=== PATIENT | male | born 1950 | race Caucasian/White ===

== ENCOUNTER 2017-01-27 09:03 | Emergency (ER) | payer OTHER ==
[~2017-01-27] VITALS: Ht 170.2 cm; Wt 77.4 kg
[2017-01-27 09:13] VITALS: TEMP 36.6; O2SAT 97; Ht 170.2 cm; Wt 77.4 kg
[2017-01-27] MEDS ORDERED: SODIUM CHLORIDE 0.9% 500ML 500 ML IV STA (09:20)
[2017-01-27] MEDS ORDERED: SODIUM CHLORIDE 0.9% 1000ML 1,000 ML IV STA (09:20)
--- NOTE | 2017-01-27 09:36 | EMERGENCY ROOM VISIT NOTE ---
History Report prepared by Yayo: Akash Parker Under the Supervision of: Dr. Jael Ervin M.D. First contact with patient: 09:08 Chief Complaint: SYNCOPE Stated Complaint: SYNCOPE Nursing Triage Summary: Patient had a witnessed 4-5 second period of sycnope associated with diaphoresis and paleness. Negative nausea/vomiting, chest pain, SOB, or recent illness. No complaints on arrival. History of Present Illness The patient is a 67 year old male who presents to the Emergency Room with complaints of an episode of syncope this morning. The patient states that he began feeling "tingly all over" this morning as he was sitting down in a recliner. He notes that as he got up from the chair, he was able to walk about 20 feet before having to brace himself for support. He reports that the next thing he remembers was his brother helping him stand up from the ground. The patient states that his brother said he was out for 4-5 seconds. He notes that he was "drenched in sweat" following the episode but did not hit his head as he fell. The patient states that he is from [place], but is currently visiting his brother. He notes that he drove here 5 days ago. He reports that he was diagnosed with an upper respiratory virus 3 weeks ago. He denies any SOB and leg pain. The patient states that he was not drinking last night and does not smoke marijuana or cigarettes. He notes that he has no history of heart attack, or diabetes mellitus, but notes that he has a history of hypertension and hyperlipidemia. He reports that he did not hear his heart flutter following the episode today. The patient states that he did not eat or drink anything this morning. Source of History: patient Onset: today Position: head Quality: tingling, other (syncope) Timing: other (an episode) Associated Symptoms: + diaphoresis, No headache, No SOB Note: he denies any leg pain Review of Systems See HPI for pertinent positives & negatives. A total of 10 systems reviewed and were otherwise negative. Past Medical & Surgical Medical Problems: (1) Hyperlipemia (2) Hypertension Family History No pertinent family history stated. Social History Smoking Status: Never Smoker Alcohol Use: none Drug Use: none Marital Status: Housing Status: lives with family Current/Historical Medications Scheduled Aspirin (Aspirin Ec), 81 MG PO HS Atorvastatin (Lipitor), 20 MG PO HS Bioflavonoid Products (Vitamin C), 1 EA PO DAILY Citalopram Hydrobromide (Celexa), 10 MG PO DAILY Fish Oil (Palermo-3), 1 CAP PO DAILY Glucosamine Sulfate (Glucosamine), 1,000 MG PO DAILY Hctz/Losartan (Hyzaar 25MG/100MG), 1 TAB PO QDD Ocuvite Preservision (Ocuvite Preservision), 1 TAB PO DAILY Scheduled PRN Guaifenesin-Codeine (Codeine/Guaifenesin 100-10 mg/5Ml), 5 ML PO Q4H PRN for Cough Allergies Coded Allergies: No Known Allergies (Unverified , 01/27/17) Physical Exam Vital Signs Date Time Temp Pulse Resp B/P (MAP) Pulse Ox O2 Delivery O2 Flow Rate FiO2 01/27/17 11:52 57 16 128/70 98 Room Air 01/27/17 09:37 56 119/72 60 131/71 68 125/71 01/27/17 09:13 97 Room Air 01/27/17 09:13 36.6 56 18 143/89 97 Room Air 01/27/17 09:08 54 Physical Exam Vital signs reviewed. General: Well-appearing, in no significant distress. HEENT: No scleral icterus, PERRLA, neck supple. Atraumatic. Cardiovascular: Regular rate and rhythm, no extra sounds. Pulmonary: Clear to auscultation bilaterally, normal work of breathing. Abdomen: Soft, nontender, nondistended, positive bowel sounds. Musculoskeletal: Atraumatic, no peripheral edema. Neurologic: Patient awake alert and oriented x 3, full strength in all 4 extremities. Cranial nerves 2 through 12 grossly intact. Skin: Warm, dry, no rash Medical Decision & Procedures ER Provider Diagnostic Interpretation: Radiology results as stated below per my review and radiologist interpretation: CHEST ONE VIEW PORTABLE. FINDINGS: The cardiac and mediastinal contours are normal. There is no evidence of focal pulmonary consolidation. There is no evidence of failure. No pleural effusions are visualized.[ IMPRESSION: No active disease in the chest. Electronically signed by: Bradley Ley M.D. 01/27/2017 9:[address] ANGIOGRAM OF THE CHEST FINDINGS: No pathologically enlarged axillary mediastinal or hilar lymph nodes were visualized. The ascending thoracic aorta measures 41 mm in diameter There were no pulmonary artery filling defects to indicate acute pulmonary embolism. No pleural effusions are visualized. There is no focal pulmonary consolidation. There are mild dependent atelectatic changes. There is a 5 mm solid right middle lobe pulmonary nodule as visualized in image #103/286. There is a 5 mm perifissural solid right middle lobe nodule as visualized in image #143/286. There is a 4 mm perifissural right upper lobe pulmonary nodule as visualized in image #144/286. IMPRESSION: 1. No acute intrathoracic findings 2. No evidence of acute pulmonary embolism 3. No evidence of focal pulmonary consolidation 4. Solid right lung pulmonary nodules, the largest of which measures 5 mm. In a low risk patient, no follow-up is felt to be clinically necessary. In a high risk patient, a 12 month follow-up is optional Please refer to below summary of Fleischner criteria recommendations for follow-up of incidental CT nodules (Elliot Gonzalez, Guidelines for management of small pulmonary nodules detected on CT scans: A statement from the Fleischner Society, Radiology 237: [id number].) SOLID NODULES Solitary nodule size: <6 mm * low risk patients: no follow-up needed * high risk patients: optional CT at 12 months Solitary nodule size: 6-8 mm * low risk patients: follow-up at 6-12 months, then consider further follow-up at 18-24 months * high risk patients: initial follow-up CT at 6-12 months and then at 18-24 months if no change Solitary nodule size: >8 mm * either low or high risk patients - consider follow-up CT at 3 months, and/or CT-PET, and/or biopsy Multiple nodules size: <6 mm * low risk patients: no routine follow-up * high risk patients: optional CT at 12 months Multiple nodules size: 6-8 mm * low risk patients: follow-up at 3-6 months, then consider further follow-up at 18-24 months * high risk patients: follow-up at 3-6 months, then at 18-24 months if no change Multiple nodules size: >8 mm * low risk patients: follow-up at 3-6 months, then consider further follow-up at 18-24 months * high risk patients: follow-up at 3-6 months, then at 18-24 months if no change Note: newly detected indeterminate nodule in persons 35 years of age or older. * low risk patients: minimal or absent history of smoking and/or other known risk factors * high risk patients: history of smoking or of other known risk factors (e.g. first degree relative with lung cancer, or exposure to asbestos, radon, uranium) * if a nodule up to 8 mm is partly solid or is ground glass further follow-up is required after 24 months to exclude possible slow growing adenocarcinoma (MELVINA) SUBSOLID NODULES Solitary pure ground-glass nodule * nodule size <6 mm - no CT follow-up required * nodule size >=6 mm - follow-up CT at 6-12 months, then every 2 years until 5 years Solitary part-solid nodule * nodule size <6 mm - no CT follow-up required * nodule size >=6 mm - follow-up CT at 3-6 months. If unchanged, and solid component remains <6 mm, then annual follow-up for 5 years Multiple subsolid nodules * nodule size <6 mm - follow-up CT at 3-6 months, consider further follow-up at 2 and 4 years if stable * nodule size >=6 mm - follow-up CT at 3-6 months, subsequent management based on the most suspicious nodule(s) Electronically signed by: Bradley Ley M.D. 01/27/2017 11:07 AM Laboratory Results 01/27/17 09:30 Red Blood Count 4.32, Mean Corpuscular Volume 90.7, Mean Corpuscular Hemoglobin 32.4, Mean Corpuscular Hemoglobin Concent 35.7, Mean Platelet Volume 10.0, Neutrophils (%) (Auto) 80.5, Lymphocytes (%) (Auto) 13.3, Monocytes (%) (Auto) 5.4, Eosinophils (%) (Auto) 0.4, Basophils (%) (Auto) 0.1, Neutrophils # (Auto) 7.71, Lymphocytes # (Auto) 1.27, Monocytes # (Auto) 0.52, Eosinophils # (Auto) 0.04, Basophils # (Auto) 0.01 01/27/17 09:30 Test 01/27/17 00:00 01/27/17 09:30 01/27/17 09:33 Urine Color YELLOW Urine Appearance CLEAR (CLEAR) Urine pH 8.5 (4.5-7.5) Urine Specific Bowman > 1.045 (1.000-1.030) Urine Protein NEG (NEG) Urine Glucose (UA) NEG (NEG) Urine Ketones NEG (NEG) Urine Occult Blood NEG (NEG) Urine Nitrite NEG (NEG) Urine Bilirubin NEG (NEG) Urine Urobilinogen NEG (NEG) Urine Leukocyte Esterase NEG (NEG) White Blood Count 9.58 K/uL (4.8-10.8) Red Blood Count 4.32 M/uL (4.7-6.1) Hemoglobin 14.0 g/dL (14.0-18.0) Hematocrit 39.2 % (42-52) Mean Corpuscular Volume 90.7 fL (80-100) Mean Corpuscular Hemoglobin 32.4 pg (25-34) Mean Corpuscular Hemoglobin Concent 35.7 g/dl (32-36) Platelet Count 155 K/uL (130-400) Mean Platelet Volume 10.0 fL (7.4-10.4) Neutrophils (%) (Auto) 80.5 % Lymphocytes (%) (Auto) 13.3 % Monocytes (%) (Auto) 5.4 % Eosinophils (%) (Auto) 0.4 % Basophils (%) (Auto) 0.1 % Neutrophils # (Auto) 7.71 K/uL (1.4-6.5) Lymphocytes # (Auto) 1.27 K/uL (1.2-3.4) Monocytes # (Auto) 0.52 K/uL (0.11-0.59) Eosinophils # (Auto) 0.04 K/uL (0-0.5) Basophils # (Auto) 0.01 K/uL (0-0.2) RDW Standard Deviation 44.3 fL (36.4-46.3) RDW Coefficient of Variation 13.3 % (11.5-14.5) Immature Granulocyte % (Auto) 0.3 % Immature Granulocyte # (Auto) 0.03 K/uL (0.00-0.02) Anion Gap 7.0 mmol/L (3-11) Est Creatinine Clear Calc Drug Dose 60.4 ml/min Estimated GFR () 79.2 Estimated GFR (Non- 68.3 BUN/Creatinine Ratio 15.8 (10-20) Calcium Level 9.1 mg/dl (8.5-10.1) Magnesium Level 2.2 mg/dl (1.8-2.4) Total Bilirubin 0.9 mg/dl (0.2-1) Direct Bilirubin 0.2 mg/dl (0-0.2) Aspartate Amino Transf (AST/SGOT) 11 U/L (15-37) Alanine Aminotransferase (ALT/SGPT) 26 U/L (12-78) Alkaline Phosphatase 58 U/L (45-117) Total Creatine Kinase 69 U/L (39-308) Creatine Kinase MB 1.2 ng/ml (0.5-3.6) Creatine Kinase MB Ratio 1.7 (0-3.0) Total Protein 6.8 gm/dl (6.4-8.2) Albumin 3.6 gm/dl (3.4-5.0) Thyroid Stimulating Hormone (TSH) 1.320 uIu/ml (0.300-4.500) Bedside D-Dimer > 450 ng/mlFEU (0-450) Bedside Troponin I < 0.030 ng/ml (0-0.045) Laboratory results per my review. Medications Administered Medications (Trade) Dose Ordered Sig/Domenico Route Start Time Stop Time Status Last Admin Dose Admin Sodium Chloride 500 ml @ 999 mls/hr Q31M STAT IV 01/27/17 09:20 01/27/17 09:50 DC 01/27/17 09:29 999 MLS/HR Sodium Chloride 1,000 ml @ 125 mls/hr Q8H STAT IV 01/27/17 09:20 01/27/17 12:49 DC 01/27/17 09:29 125 MLS/HR ECG Indication: syncope Rate (beats per minute): 50 Rhythm: sinus bradycardia Findings: no acute ischemic change, no ectopy ED Course 0918: Past medical records reviewed. The patient was evaluated in room B2. A complete history and physical examination was performed. 0920: Sodium Chloride 500 ml @ 999 mls/hr IV, Sodium Chloride 500 ml @ 999 mls/ hr IV 1213: Upon reevaluation, the patient appeared to have improvement of his symptoms. I discussed findings with him. He verbalized agreement of the treatment plan. The patient was discharged home. Medical Decision Differential diagnosis: Etiologies such as vasovagal event, infection, hypoglycemia, electrolyte abnormalities, cardiac sources, intracerebral event, toxicologic, neurologic, as well as others were entertained. This pt was evaluated and appeared to be in no distress. IV access was obtained and lab work was drawn. Orthostatic VS are mildly positive. Pt was hydrated with NSS. CXR is clear. EKG reveals no acute ischemia. Pt was informed of the findings. DDimer was positive, CT scan negative for PE but significant for pulmonary nodule. He has a remote h/o smoking and will f.u with PCP in this regard upon return to [place]. He was d/c to care of his family and will return to the ED for worsening of symptoms or any medical concerns. Medication Reconcilliation Current Medication List: was personally reviewed by me Blood Pressure Screening Patient's blood pressure: Normal blood pressure Blood pressure disposition: Did not require urgent referral Impression Primary Impression: Syncope Scribe Attestation The scribe's documentation has been prepared under my direction and personally reviewed by me in its entirety. I confirm that the note above accurately reflects all work, treatment, procedures, and medical decision making performed by me. Departure Information Dispostion Home / Self-Care Forms HOME CARE DOCUMENTATION FORM, IMPORTANT VISIT INFORMATION Patient Instructions My [facility] Additional Instructions Diagnosis: Syncope Please drink plenty of clear fluids. Use caution when changing positions. Follow-up with your physician upon return home. Return to the ER for worsening of symptoms or any medical concerns.
--- NOTE | 2017-01-27 09:40 | DIAGNOSTIC IMAGING REPORT ---
CHEST ONE VIEW PORTABLE CLINICAL HISTORY: Syncope COMPARISON STUDY: No previous studies for comparison. FINDINGS: The cardiac and mediastinal contours are normal. There is no evidence of focal pulmonary consolidation. There is no evidence of failure. No pleural effusions are visualized.[ IMPRESSION: No active disease in the chest. Electronically signed by: Bradley Ley M.D. 01/27/2017 9:39 AM Dictated Date/Time: 01/27/2017 9:39 AM
[2017-01-27 09:48] LABS: BASO % 0.1 %; BASO ABS # 0.01 K/uL (0-0.2); COMPLETE YES; EOS % 0.4 %; HEMATOCRIT 39.2 % (42-52); IG% 0.3 %; LYMPH % 13.3 %; LYMPH ABS # 1.27 K/uL (1.2-3.4); MEAN CELL VOLUME 90.7 fL (80-100); MEAN CORPUSCULAR HEMOGLOBIN 32.4 pg (25-34); MEAN CORPUSCULAR HGB CONC 35.7 g/dl (32-36); MONO % 5.4 %; NEUT % 80.5 %; PLATELET COUNT 155 K/uL (130-400); RED BLOOD COUNT 4.32 M/uL (4.7-6.1); WHITE BLOOD COUNT 9.58 K/uL (4.8-10.8)
[2017-01-27 09:51] LABS: POINT OF CARE TROPONIN I < 0.030 ng/ml (0-0.045)
[2017-01-27 10:04] LABS: BUN/CREATININE RATIO 15.8 (10-20); CALCIUM 9.1 mg/dl (8.5-10.1); CREATININE 1.11 mg/dl (0.60-1.40); MAGNESIUM 2.2 mg/dl (1.8-2.4); POTASSIUM 4.8 mmol/L (3.5-5.1)
[2017-01-27] MEDS ORDERED: GLUC10007 PO (10:05)
[2017-01-27] MEDS ORDERED: HYZ/10015 PO (10:05)
[2017-01-27] MEDS ORDERED: MULT-190 PO (10:05)
[2017-01-27] MEDS ORDERED: ASPI81TA28 PO (10:05)
[2017-01-27] MEDS ORDERED: CITA10TA8 PO (10:05)
[2017-01-27] MEDS ORDERED: OMEG10007 PO (10:05)
[2017-01-27] MEDS ORDERED: BIOF500C2 PO (10:05)
[2017-01-27] MEDS ORDERED: ATOR-22 PO (10:05)
[2017-01-27] MEDS ORDERED: GUAI1SOL5 PO (10:05)
[2017-01-27 10:15] LABS: CKMB/CK RATIO 1.7 (0-3.0); THYROID STIMULATING HORMONE 1.32 uIu/ml (0.300-4.500)
[2017-01-27] MEDS ORDERED: OPTIRAY 320 IV PRN (10:45)
--- NOTE | 2017-01-27 11:09 | DIAGNOSTIC IMAGING REPORT ---
CT ANGIOGRAM OF THE CHEST CLINICAL HISTORY: SYNCOPE. POSSIBLE ACUTE PULMONARY EMBOLISM. COMPARISON STUDY: Chest x-ray dated 01/27/2017 TECHNIQUE: Following the IV administration of 93 mL of Optiray-320, CT angiogram of the thorax was performed from the thoracic inlet to the lung bases utilizing the pulmonary embolus protocol. Images are reviewed in the axial, sagittal, and coronal planes. IV contrast was administered without complication. MIP imaging was performed. A dose lowering technique was utilized adhering to the principles of ALARA. CT DOSE: 351.71 mGy.cm FINDINGS: No pathologically enlarged axillary mediastinal or hilar lymph nodes were visualized. The ascending thoracic aorta measures 41 mm in diameter There were no pulmonary artery filling defects to indicate acute pulmonary embolism. No pleural effusions are visualized. There is no focal pulmonary consolidation. There are mild dependent atelectatic changes. There is a 5 mm solid right middle lobe pulmonary nodule as visualized in image #103/286. There is a 5 mm perifissural solid right middle lobe nodule as visualized in image #143/286. There is a 4 mm perifissural right upper lobe pulmonary nodule as visualized in image #144/286. IMPRESSION: 1. No acute intrathoracic findings 2. No evidence of acute pulmonary embolism 3. No evidence of focal pulmonary consolidation 4. Solid right lung pulmonary nodules, the largest of which measures 5 mm. In a low risk patient, no follow-up is felt to be clinically necessary. In a high risk patient, a 12 month follow-up is optional Please refer to below summary of Fleischner criteria recommendations for follow-up of incidental CT nodules (Elliot Gonzalez, Guidelines for management of small pulmonary nodules detected on CT scans: A statement from the Fleischner Society, Radiology 237: [phone].) SOLID NODULES Solitary nodule size: <6 mm * low risk patients: no follow-up needed * high risk patients: optional CT at 12 months Solitary nodule size: 6-8 mm * low risk patients: follow-up at 6-12 months, then consider further follow-up at 18-24 months * high risk patients: initial follow-up CT at 6-12 months and then at 18-24 months if no change Solitary nodule size: >8 mm * either low or high risk patients - consider follow-up CT at 3 months, and/or CT-PET, and/or biopsy Multiple nodules size: <6 mm * low risk patients: no routine follow-up * high risk patients: optional CT at 12 months Multiple nodules size: 6-8 mm * low risk patients: follow-up at 3-6 months, then consider further follow-up at 18-24 months * high risk patients: follow-up at 3-6 months, then at 18-24 months if no change Multiple nodules size: >8 mm * low risk patients: follow-up at 3-6 months, then consider further follow-up at 18-24 months * high risk patients: follow-up at 3-6 months, then at 18-24 months if no change Note: newly detected indeterminate nodule in persons 35 years of age or older. * low risk patients: minimal or absent history of smoking and/or other known risk factors * high risk patients: history of smoking or of other known risk factors (e.g. first degree relative with lung cancer, or exposure to asbestos, radon, uranium) * if a nodule up to 8 mm is partly solid or is ground glass further follow-up is required after 24 months to exclude possible slow growing adenocarcinoma (MELVINA) SUBSOLID NODULES Solitary pure ground-glass nodule * nodule size <6 mm - no CT follow-up required * nodule size >=6 mm - follow-up CT at 6-12 months, then every 2 years until 5 years Solitary part-solid nodule * nodule size <6 mm - no CT follow-up required * nodule size >=6 mm - follow-up CT at 3-6 months. If unchanged, and solid component remains <6 mm, then annual follow-up for 5 years Multiple subsolid nodules * nodule size <6 mm - follow-up CT at 3-6 months, consider further follow-up at 2 and 4 years if stable * nodule size >=6 mm - follow-up CT at 3-6 months, subsequent management based on the most suspicious nodule(s) Electronically signed by: Bradley Ley M.D. 01/27/2017 11:07 AM Dictated Date/Time: 01/27/2017 10:47 AM
[2017-01-27 11:14] LABS: URINE APPEARANCE CLEAR (CLEAR); URINE BILIRUBIN NEG (NEG); URINE COLOR YELLOW; URINE NITRITE NEG (NEG); URINE PH 8.5 (4.5-7.5); URINE SPECIFIC GRAVITY > 1.045 (1.000-1.030); UROBILINOGEN NEG (NEG); ZZUR CULT IF INDIC CLEAN CATCH NO
[2017-01-27 11:24] LABS: MANUAL MICROSCOPIC REQUIRED? NO; REVIEW REQ? NO
[2017-01-27 11:52] VITALS: BP 128/70; PULSE 57; O2SAT 98
== END 2017-01-27 12:23 | disposition home or self-care (01) ==
LOC: EDBD 09:03 → C.EDB 09:05
DX: R55 Syncope and collapse (principal); I10 Essential (primary) hypertension; E78.5 Hyperlipidemia, unspecified; Z79.82 Long term (current) use of aspirin; Z79.899 Other long term (current) drug therapy